=== PATIENT | male | born 1960 | race Caucasian/White ===

== ENCOUNTER 2024-03-25 17:33 | Emergency (ER) | payer MEDICAID, OTHER ==
--- NOTE | 2024-03-25 18:45 | ED Physician Documentation ---
PD HPI HEAD INJURY - Stated complaint Stated Complaint: HEAD WOUND - Chief complaint Chief Complaint: Laceration - History obtained from History obtained from: Patient - History of Present Illness Mechanism of head injury: Fell Pain level max: 3 Pain level now: 3 Location of injury: Top Quality of pain: Pain Associated symptoms: No: LOC, AMS, Amnesia, Nausea / vomiting, Neck pain, Paresthesias, Seizures, Ear drainage, Nasal drainage Symptoms improve with: Rest Symptoms worsen with: Palpation, Movement Contributing factors: No: Anticoagulated, Intoxicated - Additional information Additional information: 63-year-old male presents to the emergency department after sustaining a laceration to the top of his head today. He was getting a bottle of wine from t he refrigerator when he hit his head on the door causing a laceration to the scalp. Unknown last tetanus shot. No loss of consciousness. PD PAST MEDICAL HISTORY - Past Medical History Past Medical History: No - Past Surgical History Past Surgical History: Yes Ortho: Hip replacement - Allergies Allergies/Adverse Reactions: Allergies Allergy/AdvReac Type Severity Reaction Status Date / Time No Known Drug Allergies Allergy Verified 03/25/24 17:39 - Social History Does the pt smoke?: No Smoking Status: Never smoker - Immunizations Immunizations are current?: Yes PD ED PE NORMAL - Vitals Vital signs reviewed: Yes - General General: Alert and oriented X 3, No acute distress - HEENT HEENT: PERRL, Moist mucous membranes, Other (2 cm frontal scalp laceration. No scalp hematoma. No palpable skull fracture.) - Neck Neck: Supple, no meningeal sign, No bony TTP, C-Spine cleared by NEXUS criteria - Cardiac Cardiac: RRR, Strong equal pulses - Respiratory Respiratory: No respiratory distress, Clear bilaterally - Back Back: No spinal TTP - Derm Derm: Warm and dry - Neuro Neuro: Alert and oriented X 3, dredge mate 2-12 intact, No motor deficit, No sensory deficit, Normal speech Eye Opening: Spontaneous Motor: Obeys Commands Verbal: Oriented GCS Score: 15 Results - Vitals Vitals: Vital Signs - 24 hr 03/25/24 17:40 Temperature 36.8 C Heart Rate 62 Respiratory 16 Rate Blood Pressure 137/89 H O2 Saturation 95 Procedures - Laceration (location) scalp Length in cm: 2 Wound type: Linear, Into subcut fat, Clean Neurovascular status: Sensory intact, Motor intact, Vascular intact Wound preparation: Irrigated copiously NS, Wound explored, To the base Skin layer closure: [place] Other: Patient tolerated well, No complications, Neurovascular intact, Tetanus booster given PD Medical Decision Making - ED course Complexity details: considered differential, d/w patient ED course: 63-year-old male with a scalp laceration. Repaired with feli. Tolerated well. Wound care instructions given at bedside. Tdap given. Head injury instructions given at bedside. No indication for head CT. GCS 15. Patient counseled regarding signs and symptoms for which I believe and urgent re- evaluation would be necessary. Patient with good understanding of and agreement to plan and is comfortable going home at this time This document was made in part using voice recognition software. While efforts are made to proofread this document, sound alike and grammatical errors may occur. Departure - Departure Disposition: 01 Home, Self Care Clinical Impression: Scalp laceration Qualifiers: Encounter type: initial encounter Qualified Code(s): S01.01XA - Laceration without foreign body of scalp, initial encounter Condition: Good Instructions: ED Laceration Scalp Stitch Or Stap Follow-Up: your,doctor in approx 10 days [Other] Comments: You can follow-up either with your doctor, one of the walk-in clinics or here in approximately 10 days for staple removal. You can shower and wash your hair. A tetanus shot was given tonight as well. You can use Motrin or Tylenol as needed for pain. Please return if you worsen. Forms: PCP List
[2024-03-25] MEDS: TETANUS/DIPHTHERIA/PERTUSSIS 0.5 ML SYRINGE IM ONE (18:49)
[2024-03-25 18:55] VITALS: BP 132/80; O2SAT 99
== END 2024-03-25 18:55 | disposition home or self-care (01) ==
LOC: ED 17:33
DX: S01.01XA Laceration without foreign body of scalp, initial encounter (principal); W22.8XXA Striking against or struck by other objects, initial encounter; Z23 Encounter for immunization
CPT/HCPCS: 12001; 90471; 99283

== ENCOUNTER 2024-04-04 15:34 | Emergency (ER) | payer MEDICAID ==
[2024-04-04 15:43] VITALS: O2SAT 100
--- NOTE | 2024-04-04 15:50 | ED Physician Documentation ---
PD HPI WOUND RECHECK - Stated complaint Stated Complaint: REMOVE FELI - Chief complaint Chief Complaint: Wound - Histroy obtained from History obtained from: Patient - History of Present Illness Pain level max: 0 Pain level now: 0 Associated symptoms: No: Fever, Redness, Swelling, Drainage - Additional information Additional information: 63-year-old male here for staple removal. They were placed about 10 days ago. 4 feli on the frontal aspect of the scalp. No complaints. PD PAST MEDICAL HISTORY - Past Surgical History Past Surgical History: Yes Ortho: Hip replacement - Allergies Allergies/Adverse Reactions: Allergies Allergy/AdvReac Type Severity Reaction Status Date / Time No Known Drug Allergies Allergy Verified 03/25/24 17:39 - Social History Does the pt smoke?: No Smoking Status: Never smoker Does the pt have substance abuse?: No - Immunizations Immunizations are current?: Yes - POLST Patient has POLST: No PD ED PE NORMAL - Vitals Vital signs reviewed: Yes - General General: Alert and oriented X 3, No acute distress - HEENT HEENT: Other (Well-healed laceration to the right frontal scalp no signs of infection) - Derm Derm: Warm and dry - Neuro Neuro: Alert and oriented X 3 Results - Vitals Vitals: Vital Signs - 24 hr 04/04/24 15:36 Temperature 36.7 C Heart Rate 64 Respiratory 18 Rate O2 Saturation 100 Oxygen O2 Source Room air Procedures - Suture/staple Removal (location) - Minor Right frontal scalp Suture/staple removal: # feli (all) PD Medical Decision Making - ED course Complexity details: considered differential, d/w patient ED course: All feli removed. No signs of infection. Patient counseled regarding signs and symptoms for which I believe and urgent re-evaluation would be necessary. Patient with good understanding of and agreement to plan and is comfortable alissa g home at this time This document was made in part using voice recognition software. While efforts are made to proofread this document, sound alike and grammatical errors may occur. Departure - Departure Disposition: 01 Home, Self Care Clinical Impression: Encounter for staple removal Condition: Good Instructions: ED Stap Removal No Complication Comments: Your feli were removed today. They appear well-healed. You can follow-up with your doctor as needed for any further care. Forms: PCP List
== END 2024-04-04 15:54 | disposition home or self-care (01) ==
LOC: ED 15:34
DX: S01.01XD Laceration without foreign body of scalp, subsequent encounter (principal); W22.09XD Striking against other stationary object, subsequent encounter
CPT/HCPCS: 99281; 99282

== ENCOUNTER 2024-04-24 10:42 | Outpatient (CLI) | payer MEDICAID ==
--- NOTE | 2024-04-27 22:12 | XRAY Report ---
PROCEDURE: Shoulder 2+V RT INDICATIONS: R BICEPS TENDON RUPTURE,INCOMPLETE RC TEAR RIGHT TECHNIQUE: 3 views of the shoulder were acquired. COMPARISON: None. FINDINGS: Bones: No fractures or dislocations. No suspicious bony lesions. Visualized ribs appear intact. Moderate acromioclavicular and mild glenohumeral joint space narrowing with particular osteophyte for mation. Soft tissues: No suspicious soft tissue calcifications. The visualized lungs are within normal limi ts. 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 Reviewed by: DANIEL Dugan on 04/27/2024 10:10 PM PDT Approved by: Lainey Eaton MD on 04/27/2024 10:10 PM PDT Station ID: [id number]
== END 2024-04-24 10:43 | disposition home or self-care (01) ==
LOC: DI 10:42
PROVIDERS: ATTEND Family Medicine
DX: M66.811 Spontaneous rupture of other tendons, right shoulder (principal); M75.111 Incomplete rotator cuff tear or rupture of right shoulder, not specified as traumatic; M19.011 Primary osteoarthritis, right shoulder